=== PATIENT | male | born 1975 | race Caucasian/White ===

== ENCOUNTER 2017-04-18 23:12 | Emergency (ER) | payer BC ==
[2017-04-18 23:26] VITALS: BP 126/84
--- NOTE | 2017-04-19 00:59 | ER Document Report ---
ED Skin Rash/Insect Bite/Abscs - General Mode of Arrival: Ambulatory Information source: Patient TRAVEL OUTSIDE OF THE [place] IN LAST 30 DAYS: No - HPI Onset: Other - Refer to HPI note Similar symptoms previously: No Recently seen / treated by doctor: No - General Chief Complaint: Insect Bite Stated Complaint: POSSIBLE SPIDER BITE Time Seen by Provider: 04/19/17 00:37 Notes: Patient is a 42-year-old male presented emergency department for possible bug bite. Patient states he noticed a bruise last night on his right groin. Patient denies having any back or flank getting bit or any recent checks on him. Patient has been working outside recently. Patient has a bruise with a central area of clearing. Patient also complains of a rash is generalized area. He is working condition. 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 Patient has to wear long jeans and sweats a lot. Patient states he has been trying gold rawls for the rash. Patient has no known allergies. (CHAY NORMAN) - Related Data Allergies/Adverse Reactions: No Known Allergies Allergy (Verified 04/18/17 23:23) Past Medical History - General Information source: Patient - Social History Smoking Status: Never Smoker Cigarette use (# per day): No Chew tobacco use (# tins/day): No Smoking Education Provided: No Frequency of alcohol use: None Drug Abuse: None Family History: None Patient has suicidal ideation: No Patient has homicidal ideation: No Surgical Hx: Negative Review of Systems - Review of Systems Constitutional: No symptoms reported EENT: No symptoms reported Cardiovascular: No symptoms reported Respiratory: No symptoms reported Gastrointestinal: No symptoms reported Genitourinary: No symptoms reported Male Genitourinary: No symptoms reported Musculoskeletal: No symptoms reported Skin: See HPI, Change in color, Rash Hematologic/Lymphatic: No symptoms reported Neurological/Psychological: No symptoms reported -: Yes All other systems reviewed and negative Physical Exam - Vital signs Interpretation: Normal - Vital signs Vitals: Temp Pulse Resp BP Pulse Ox 98.3 F 74 20 126/84 H 98 04/18/17 23:23 04/18/17 23:23 04/18/17 23:23 04/18/17 23:23 04/18/17 23:23 - Notes Notes: GENERAL: Alert, interacts well. Mild distress. HEAD: Normocephalic, atraumatic. EYES: Appear normal. Pupils equal, round, and reactive to light. ENT: Moist mucus membranes, tongue midline. NECK: Full range of motion. Supple. Trachea midline. LUNGS: Clear to auscultation bilaterally, no wheezes, rales, or rhonchi. No respiratory distress. HEART: Regular rate and rhythm. No murmurs, gallops, or rubs. ABDOMEN: Soft, non-tender. Non-distended. Normal bowel sounds. EXTREMITIES: Moves all 4 extremities spontaneously. Normal strength. No edema. Bruise to right thigh with a central area of clearing. No bite be. No sign of infection, crepitus, necrosis, abscess or drainage. NEUROLOGICAL: Alert and oriented x3. Normal speech. No focal neurological deficits. GSC 15. PSYCH: Normal affect, normal mood. SKIN: Warm, dry, normal turgor. (CHAY NORMAN) Course - Re-evaluation Re-evalutation: 04/19/17 01:32 Patient presents emergency department he thought he got bit on his right diagnosed an area of ecchymosis. When he looked on [employer] it said to be concerned about a spider bite necrosis and phlegmon he came in for evaluation. In addition to that he works and he did place and has jock itch which she has tried [id number] cream without. On examination he has a bruise to his right thigh with a central area of clearing it is not bite be secondarily infected crepitus necrosis abscess or drainage looks completely normal. No clinical concerns for anything dangerous at this time. Reassured him of that and ordered him cream for his jock itch area. Follow-up with his primary care physician and discussed reasons for ED return sooner (REYMUNDO SANDERS) - Vital Signs Vital signs: Temp Pulse Resp BP Pulse Ox 98.3 F 74 20 126/84 H 98 04/18/17 23:23 04/18/17 23:23 04/18/17 23:23 04/18/17 23:23 04/18/17 23:23 Discharge - Discharge Clinical Impression: Ecchymosis of the right leg, heat Rash to the groin Condition: Stable Disposition: HOME, SELF-CARE Additional Instructions: Contusion Your injury has resulted in a contusion -- a crushing of the deep tissues. No injury to important structures was detected during the physician's exam. Contusions vary in the amount of pain they cause, and in the length of time required for healing. Typically, the area will become bruised, and will remain painful to touch for two or three weeks. However, most patients are back to working and playing within a few days. After the initial period of rest and cold-packs, your symptoms (together with the doctor's recommendations) will determine how rapidly you can get back to full activity. Usually this means "do what feels okay, but don't do things that hurt." If re-examination was recommended, it's important to follow up as instructed. Call the doctor or return any time if pain increases, if swelling becomes severe, if you develop numbness or weakness in an injured extremity, or if any other alarming symptoms occur. groin rash Prescriptions: Miscellaneous Medication [Happy Hiney Cream] 1 applic TOP ASDIR PRN #30 gm PRN Reason: Scribe Attestation: 04/19/17 01:28 I personally performed the services described in the documentation reviewed the documentation recorded by my scribe in my presence and it accurately and completely records my words and actions (REYMUNDO SANDERS) Scribe Documentation - Scribe Written by Sonia:: Sonia Denny 04/19/2017 3:35 acting as scribe for :: Aldo
== END 2017-04-19 01:40 | disposition home or self-care (01) ==
LOC: ER 23:12
DX: S80.11XA Contusion of right lower leg, initial encounter (principal); L74.0 Miliaria rubra; X58.XXXA Exposure to other specified factors, initial encounter
CPT/HCPCS: 99281

== ENCOUNTER → 2017-07-27 | Outpatient (CLI) | payer BC ==
--- NOTE | 2017-07-27 18:42 | RADIOLOGY REPORT (SQ) ---
EXAM DESCRIPTION: MRI THORACIC SPINE WITHOUT COMPLETED DATE/TIME: 07/27/2017 6:27 pm REASON FOR STUDY: PAIN IN THORACIC SPINE (M54.6) M54.6 PAIN IN THORACIC SPINE COMPARISON: None. TECHNIQUE: Sagittal and Axial imaging includes T1, T2, STIR and gradient echo sequences. LIMITATIONS: None. FINDINGS: LOCALIZER: No worrisome findings. ALIGNMENT: Normal. VERTEBRAE: Intact. BONE MARROW: Benign focal fat in the mid T3 and T4 vertebral bodies, inferior T6 vertebral body, and upper T9 vertebral body. No marrow signal abnormalities worrisome for occult fracture or metastatic disease. HARDWARE: None in the spine. CORD: Normal in size and signal intensity. SOFT TISSUES: No soft tissue masses. THORACIC DISCS T1-T12: No significant spinal stenosis or exit foraminal stenosis. Very mild posterio r disc bulging is seen at T7-8, and T9-10. LOWER CERVICAL: Incompletely imaged. No significant spinal stenosis or exit foraminal stenosis. UPPER LUMBAR: Incompletely imaged. No significant spinal stenosis or exit foraminal stenosis. OTHER: Small benign perineural cyst on the left at T8-9 IMPRESSION: No thoracic wedge compression deformity. No high-grade central or foraminal encroachment. TECHNICAL DOCUMENTATION: JOB ID: [id number] [employer]- All Rights Reserved
== END ==
LOC: RAD 16:40
PROVIDERS: ATTEND Orthopaedic Surgery
DX: M54.6 Pain in thoracic spine (principal)
CPT/HCPCS: 72146

== ENCOUNTER 2018-06-05 11:18 | Emergency (ER) | payer BC ==
[2018-06-05] MEDS ORDERED: ASPIRIN 81 MG TABLET, CHEWABLE PO ONE (12:55)
[2018-06-05] MEDS ORDERED: IPRATROPIUM/ALBUTEROL 0.5-2.5 MG/3 ML AMPUL NEB ONE (12:55)
[2018-06-05] MEDS ORDERED: PREDNISONE 20 MG TABLET PO ONE (12:56)
--- NOTE | 2018-06-05 12:59 | ER Document Report ---
ED Respiratory Problem - General Chief Complaint: Breathing Difficulty Stated Complaint: BREATHING DIFFICULTY Time Seen by Provider: 06/05/18 12:50 Mode of Arrival: Ambulatory Information source: Patient Notes: Patient presents complaining of a 6 day history of some shortness of breath. Patient states that he has been working in an environment that has had heavy thick smoke and poor ventilation. Patient feels that his work conditions have been affecting his breathing. Patient did use a nebulizer of the family member at home that did seem to help his symptoms. Patient states he has had chest tightness for the past 6 days that has been constant. Patient denies any nausea vomiting or diarrhea. Patient denies any fever. TRAVEL OUTSIDE OF THE [place] IN LAST 30 DAYS: No - HPI Patient complains to provider of: Chest pain, Cough, Short of breath Onset: Last week Initiating Event: Exposure to fumes Quality of pain: Other - Tightness Pain Level: 2 Context: denies: Hx asthma, Hx COPD, Recent cardiac event, Recent long distance trvl, Recent immobilization Short of Breath: Mild Chest pain/discomfort: Center At home treatment: Bronchodilators, Oral steroids Associated symptoms: Chest pain/discomfort, Cough, Short of breath. 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 denies: Chills, Fever EENT: No symptoms reported Cardiovascular: Chest pain. denies: Palpitations, Dizziness, Lightheaded Respiratory: Cough, Short of breath Gastrointestinal: No symptoms reported. denies: Abdominal pain, Nausea, Vomiting Genitourinary: No symptoms reported Male Genitourinary: No symptoms reported Musculoskeletal: No symptoms reported. denies: Back pain Skin: No symptoms reported Hematologic/Lymphatic: No symptoms reported Neurological/Psychological: No symptoms reported Physical Exam - Vital signs Vitals: Temp Pulse Resp BP Pulse Ox 97.4 F 63 18 127/77 H 98 06/05/18 12:05 06/05/18 12:05 06/05/18 12:05 06/05/18 12:05 06/05/18 12:05 - General General appearance: Appears well, Alert In distress: None - HEENT Head: Normocephalic Eyes: Normal Nasal: Normal Mouth/Lips: Normal Mucous membranes: Normal Pharynx: Normal Neck: Normal, Supple. No: Lymphadenopathy - Respiratory Respiratory status: No respiratory distress Chest status: Pain with cough, Pain with deep breathing Breath sounds: Nonproductive cough Chest palpation: Normal - Cardiovascular Rhythm: Regular Heart sounds: S1 appreciated, S2 appreciated - Abdominal Inspection: Normal Distension: No distension Bowel sounds: Normal Tenderness: Nontender Organomegaly: No organomegaly - Back Back: Normal, Nontender - Extremities General upper extremity: Normal inspection, Normal ROM General lower extremity: Normal inspection, Normal ROM - Neurological Neuro grossly intact: Yes Cognition: Normal Yenifer Coma Scale Eye Opening: Spontaneous Maury Coma Scale Verbal: Oriented Maury Coma Scale Motor: Obeys Commands Yenifer Coma Scale Total: 15 - Psychological Associated symptoms: Normal affect, Normal mood - Skin Skin Temperature: Warm Skin Moisture: Dry Skin Color: Normal Course - Re-evaluation Re-evalutation: 06/05/18 15:33 Patient reports breathing easier after nebulizer treatment. Chest x-ray reviewed, no concern for pneumonia, EKG with normal sinus rhythm. Patient PERC negative, heart score of 0. The patient has atypical chest pain as the patient' s chest pain is not suggestive of pulmonary embolus, cardiac ischemia, aortic dissection, or other serious etiology. Given the extremely low risk of these diagnoses for the test in evaluation for these possibilities does not appear to be indicated at this time. Patient has been instructed to return if the symptoms worsen or change in any way. - Vital Signs Vital signs: Temp Pulse Resp BP Pulse Ox 98.0 F 58 L 18 110/69 98 06/05/18 16:17 06/05/18 16:17 06/05/18 16:17 06/05/18 16:17 06/05/18 16:17 - Laboratory Result Diagrams: 06/05/18 13:45 06/05/18 13:45 Laboratory results interpreted by me: 06/05/18 06/05/18 13:45 13:45 WBC 10.7 H Calcium 10.3 H Creatine Kinase 37 L Labs- Entire Visit 06/05/18 06/05/18 06/05/18 13:45 13:45 13:45 WBC 10.7 H RBC 4.80 Hgb 15.0 Hct 44.0 MCV 92 MCH 31.2 MCHC 34.1 RDW 13.1 Plt Count 279 Seg Neutrophils % 62.4 Lymphocytes % 29.3 Monocytes % 7.4 Eosinophils % 0.5 Basophils % 0.4 Absolute Neutrophils 6.7 Absolute Lymphocytes 3.1 Absolute Monocytes 0.8 Absolute Eosinophils 0.1 Absolute Basophils 0.0 Sodium 141.2 Potassium 3.9 Chloride 103 Carbon Dioxide 26 Anion Gap 12 BUN 18 Creatinine 0.75 Est GFR ( Amer) > 60 Est GFR (Non-Af Amer) > 60 Glucose 96 Calcium 10.3 H Total Bilirubin 0.5 Direct Bilirubin 0.4 Neonat Total Bilirubin Not Reportable Neonat Direct Bilirubin Not Reportable Neonat Indirect Bili Not Reportable AST 23 ALT 46 Alkaline Phosphatase 72 Creatine Kinase 37 L CK-MB (CK-2) 0.42 Troponin I < 0.012 Total Protein 7.6 Albumin 4.8 - Diagnostic Test Radiology reviewed: Reports reviewed Discharge - Discharge Clinical Impression: Bronchitis Chest pain Qualifiers: Chest pain type: unspecified Qualified Code(s): R07.9 - Chest pain, unspecified Condition: Stable Disposition: HOME, SELF-CARE Instructions: Bronchitis With Bronchospasm (Wheezing) ([facility]), Chest Pain of Unclear Cause ([facility]), Steroid Medication Additional Instructions: Return immediately for any new or worsening symptoms Followup with your primary care provider, call tomorrow to make a followup appointment 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 [Provider Group] - Follow up as needed
[2018-06-05 14:17] LABS: ABSOLUTE EOSINOPHILS # (AUTO) 0.1 10^3/uL (0.0-0.6); ABSOLUTE LYMPHOCYTES (AUTO) 3.1 10^3/uL (0.5-4.7); ABSOLUTE MONOCYTES (AUTO) 0.8 10^3/uL (0.1-1.4); ABSOLUTE NEUT (AUTO) 6.7 10^3/uL (1.7-8.2); BASOPHILS % (AUTO) 0.4 % (0-2); EOSINOPHILS % (AUTO) 0.5 % (0-6); LYMPHOCYTES % (AUTO) 29.3 % (13-45); MEAN CORPUSCULAR HEMOGLOBIN 31.2 pg (27.0-33.4); MEAN CORPUSCULAR HGB CONC 34.1 g/dL (32.0-36.0); MEAN CORPUSCULAR VOLUME 92 fl (80-97); MONOCYTES % (AUTO) 7.4 % (3-13); PLATELET COUNT 279 10^3/uL (150-450); RED CELL DISTRIBUTION WIDTH 13.1 % (11.5-14.0); SEGMENTED NEUTROPHILS % (AUTO) 62.4 % (42-78); TOTAL CELLS COUNTED % (AUTO) 100 %; WHITE BLOOD COUNT 10.7 10^3/uL (4.0-10.5)
[2018-06-05 14:39] LABS: ALANINE AMINOTRANSFERASE 46 U/L (21-72); ALBUMIN 4.8 g/dL (3.5-5.0); ALKALINE PHOSPHATASE 72 U/L (38-126); ANION GAP 12 (5-19); ASPARTATE AMINO TRANSFERASE 23 U/L (17-59); BILIRUBIN,DIRECT 0.4 mg/dL (0.0-0.4); BILIRUBIN,TOTAL 0.5 mg/dL (0.2-1.3); BLOOD UREA NITROGEN 18 mg/dL (7-20); CALCIUM 10.3 mg/dL (8.4-10.2); CARBON DIOXIDE 26 mmol/L (22-30); CHLORIDE 103 mmol/L (98-107); CREATINE KINASE 37 U/L (55-170); GLUCOSE 96 mg/dL (75-110); POTASSIUM 3.9 mmol/L (3.6-5.0); SODIUM 141.2 mmol/L (137-145); TOTAL PROTEIN 7.6 g/dL (6.3-8.2)
[2018-06-05 14:51] LABS: CREATINE KINASE MB 0.42 ng/mL (<4.55)
[2018-06-05 14:55] LABS: TROPONIN I < 0.012 ng/mL
--- NOTE | 2018-06-05 15:12 | RADIOLOGY REPORT (SQ) ---
EXAM DESCRIPTION: CHEST 2 VIEWS COMPLETED DATE/TIME: 06/05/2018 2:44 pm REASON FOR STUDY: cough, cp COMPARISON: None. EXAM PARAMETERS: NUMBER OF VIEWS: two views TECHNIQUE: Digital Frontal and Lateral radiographic views of the chest acquired. RADIATION DOSE: NA LIMITATIONS: none FINDINGS: LUNGS AND PLEURA: No opacities, masses or pneumothorax. No pleural effusion. MEDIASTINUM AND HILAR STRUCTURES: No masses or contour abnormalities. HEART AND VASCULAR STRUCTURES: Heart normal size. No evidence for failure. BONES: No acute findings. HARDWARE: None in the chest. OTHER: No other significant finding. IMPRESSION: NO ACUTE RADIOGRAPHIC FINDING IN THE CHEST. TECHNICAL DOCUMENTATION: JOB ID: [id number] [employer]- All Rights Reserved Reading location - IP/workstation name: [email or web address]
[2018-06-05] MEDS ORDERED: ALBUTEROL SULFATE HFA (90 MCG/PUFF) 8 GM MDI (1 MDI/ER DISP) IH ONE (15:35)
[2018-06-05 16:17] VITALS: BP 110/69
--- NOTE | 2018-06-06 15:32 | EKG REPORT ---
SEVERITY:- NORMAL ECG - SINUS RHYTHM : Confirmed by: Ida Ocampo MD 06-Jun-2018 15:32:00
== END 2018-06-05 16:32 | disposition home or self-care (01) ==
LOC: ER 11:18
DX: J40 Bronchitis, not specified as acute or chronic (principal); R07.9 Chest pain, unspecified
CPT/HCPCS: 93005; 94640; 99285; 36415; 82553; 82550; 85025; 80053; 84484; 71046; 93010; J7512; J3490; J7620